=== PATIENT | male | born 1990 | race Caucasian/White ===

== ENCOUNTER 2017-07-03 15:47 | Emergency (ER) | payer OTHER ==
[~2017-07-03] VITALS: Ht 182.9 cm; Wt 104.5 kg
[~2017-07-03 15:47] MED LIST: DICL75 PO; KALETRA200 PO; LAMI150 PO; RETR100C PO
[2017-07-03 15:56] VITALS: BP 122/90; PULSE 74; RESP 18; TEMP 98; O2SAT 97
[2017-07-03] MEDS ORDERED: IBUP1TAB7 PO (16:51)
[2017-07-03] MEDS ORDERED: BACT800T5 PO (16:51)
--- NOTE | 2017-07-03 16:51 | PD ---
HPI Chief Complaint: Bite or Sting Time Seen by Provider: 16:40 Travel History International Travel<30 days: No Contact w/Intl Traveler<30days: No Traveled to known affect area: No History of Present Illness HPI 26-year-old male presents to the emergency department with complaint of right forearm redness and swelling since Tuesday. Thinks he was bit by a bug. He said there was a small area that looked like a pimple and he tried to incise and drain it using a sterile blade. The area of redness has become bigger. He denies paresthesias, loss of sensation, decreased range of motion, decreased strength to the affected extremity. Denies fever, vomiting. Rates pain 2/10. No known aggravating or relieving factors. Has not taken any medications to alleviate his symptoms. Has no other medical complaints. Primary care provider is Dr. Russell. No known allergies. History of asthma. No other modifying factors or associated signs and symptoms. PFSH Past Medical History Asthma: Yes Diminished Hearing: No Musculoskeletal: Yes (FX BOTH FEET, FX LT ARM X2) Respiratory: Yes (ASTHMA) Immunizations Current: Yes Tetanus Vaccination: < 5 Years Influenza Vaccination: Yes Past Surgical History Appendectomy: Yes Other Surgery: Yes (left arm surgery-humerus) Social History Alcohol Use: Yes (Occasional.) Tobacco Use: No Substance Use: No Allergies-Medications (Allergen,Severity, Reaction): Coded Allergies: No Known Allergies (Verified Adverse Reaction, Unknown, 07/03/17) Reported Meds & Prescriptions Reported Meds & Active Scripts Active Ibuprofen 800 Mg Tab 800 Mg PO Q6HR PRN Bactrim DS (Sulfamethoxazole-Trimethoprim) 800-160 Mg Tab 1 Tab PO BID 10 Days Review of Systems Except as stated in HPI: all other systems reviewed are Neg Physical Exam Narrative GENERAL: Well-nourished, well-developed male patient, in no acute distress SKIN: Warm and dry. Area of erythema and warmth to touch to the palmar aspect of the right wrist; there is a palpable lump that measures approximately 0.5 cm to the center of the erythema that is without fluctuance, pointing or drainage. Right upper extremities supple nontender with 2+ radial pulse and sensory intact without edema. HEAD: Atraumatic. Normocephalic. EYES: Pupils equal and round. No scleral icterus. No injection or drainage. ENT: Mucosa pink and moist. Airway patent. NECK: Trachea midline. CARDIOVASCULAR: Regular rate. RESPIRATORY: No accessory muscle use. GASTROINTESTINAL: Flat. MUSCULOSKELETAL: No obvious deformities. No clubbing. No cyanosis. No edema. NEUROLOGICAL: Awake and alert. Oriented 3. No obvious cranial nerve deficits. Motor grossly within normal limits. Normal speech. PSYCHIATRIC: Appropriate mood and affect; insight and judgment normal. Data Data Last Documented VS Vital Signs Date Time Temp Pulse Resp B/P (MAP) Pulse Ox O2 Delivery O2 Flow Rate FiO2 07/03/17 15:56 98.0 74 18 122/90 (101) 97 Orders Orders Sulfamet-Trimeth Ds 800-160 Mg (Bactrim (07/03/17 17:00) Ibuprofen (Motrin) (07/03/17 17:00) Ed Discharge Order (07/03/17 16:51) [facility] Medical Decision Making Medical Screen Exam Complete: Yes Emergency Medical Condition: Yes Medical Record Reviewed: Yes Differential Diagnosis Cellulitis, abscess, infected insect bite Narrative Course 26-year-old male with cellulitis of the right wrist. Patient is afebrile and nontoxic-appearing. Denies fever, vomiting. Area marked with a surgical marker. Instructed patient to return to the emergency department for incision and drainage if the abscess becomes bigger and actually despite antibiotics. patient verbalized understanding and agreement. Bactrim, ibuprofen administered in the ER. Bactrim, ibuprofen prescribed for home. Instructed patient to follow up with primary care provider. Patient verbalizes understanding and agreement with treatment plan. Patient is medically cleared and stable for discharge. Discussed reasons to return to the emergency department. Patient agrees with treatment plan. The patients vital signs are stable and the patient is stable for outpatient follow-up and treatment. Patient discharged home, stable and in no acute distress. Diagnosis Primary Impression: Cellulitis of wrist Referrals: Primary Care Physician Patient Instructions: Cellulitis (ED), General Instructions, Insect Bite or Sting (ED) Additional Instructions: Complete full course of antibiotics Warm compresses to the affected area Keep area clean and dry Ibuprofen or Tylenol as directed and as needed for pain and inflammation Follow-up with primary care provider Return to emergency department immediately with worsening of symptoms Med/Other Pt SpecificInfo: Prescription(s) given Scripts Ibuprofen (Ibuprofen) 800 Mg Tab 800 MG PO Q6HR Y for PAIN, #30 TAB 0 Refills Prov: Ewa Nunez 07/03/17 Sulfamethoxazole-Trimethoprim (Bactrim DS) 800-160 Mg Tab 1 TAB PO BID for Infection for 10 Days, #20 TAB 0 Refills Prov: Ewa Nunez 07/03/17 Disposition: 01 DISCHARGE HOME Condition: Stable Ewa Nunez Jul 03, 2017 16:51
[2017-07-03] MEDS ORDERED: SULFAMETHOXAZOLE-TRIMETHOPRIM DS 800-160 MG TAB PO ONE (17:00)
[2017-07-03] MEDS ORDERED: IBUPROFEN 800 MG TAB PO ONE (17:00)
== END 2017-07-03 17:14 | disposition home or self-care (01) ==
LOC: NEPD 15:47
DX: L03.115 Cellulitis of right lower limb (principal)
CPT/HCPCS: 99283